=== PATIENT | female | born 1980 | race Caucasian/White ===

== ENCOUNTER 2021-04-20 20:32 | Emergency (ER) | payer SELFPAY ==
[~2021-04-20] VITALS: Ht 157.5 cm; Wt 62.6 kg
[2021-04-20] MEDS ORDERED: PYRIDIUM200 MG PO (21:27)
[2021-04-20] MEDS ORDERED: CEFDINIR300 MG PO (21:27)
[2021-04-20] MEDS ORDERED: CEFTRIAXONE 1 GM VIAL ONE (21:29)
[2021-04-20] MEDS ORDERED: CEFTRIAXONE 1 GM VIAL IM ONE (21:30)
== END 2021-04-20 21:40 | disposition home or self-care (01) ==
LOC: FSED 21:11
DX: R30.0 Dysuria (principal); N30.00 Acute cystitis without hematuria
CPT/HCPCS: 99282; J0696